=== PATIENT | female | born 1930 | race Caucasian/White ===

== ENCOUNTER 2017-02-10 19:05 | Inpatient (IN) | payer OTHER ==
--- NOTE | 2017-02-10 19:16 | EDPHY ---
H & P Time Seen by Provider: 02/10/17 19:09 HPI/ROS: CHIEF COMPLAINT: Left hip pain HISTORY OF PRESENT ILLNESS: Patient is a 46-year-old female who tripped on a step and landed on her left hip. She has pain in her left hip. She has been able to bear weight. This happened just prior to arrival. She is visiting here from [place]. She denies head neck or back injury. She denies upper extremity injury. REVIEW OF SYSTEMS: Constitutional: denies: chills, fever, recent illness, recent injury EENTM: denies: blurred vision, double vision, nose congestion Respiratory: denies: cough, shortness of breath Cardiac: denies: chest pain, irregular heart rate, lightheadedness, palpitations Gastrointestinal/Abdominal: denies: abdominal pain, diarrhea, nausea, vomiting, blood streaked stools Genitourinary: denies: dysuria, frequency, hematuria, pain Musculoskeletal: See HPI Skin: denies: lesions, rash, jaundice, bruising Neurological: denies: headache, numbness, paresthesia, tingling, dizziness, weakness Hematologic/Lymphatic: denies: blood clots, easy bleeding, easy bruising Immunologic/allergic: denies: HIV/AIDS, transplant EXAM: GENERAL: Well-appearing, well-nourished and in no acute distress. HEAD: Atraumatic, normocephalic. EYES: Pupils equal round and reactive to light, extraocular movements intact, sclera anicteric, conjunctiva are normal. ENT: TMs normal, nares patent, oropharynx clear without exudates. Moist mucous membranes. NECK: Normal range of motion, supple without lymphadenopathy or JVD. LUNGS: Breath sounds clear to auscultation bilaterally and equal. No wheezes rales or rhonchi. HEART: Regular rate and rhythm without murmurs, rubs or gallops. ABDOMEN: Soft, nontender, normoactive bowel sounds. No guarding, no rebound. No masses appreciated. BACK: No CVA tenderness, no spinal tenderness, step-offs or deformities EXTREMITIES: Left hip pain with axial loading or rotation. Not shortened. Normal pulses and sensation distally. No tenderness to knee or ankle. NEUROLOGICAL: Cranial nerves II through XII grossly intact. Normal speech, normal gait. 5/5 strength, normal movement in all extremities, normal sensation PSYCH: Normal mood, normal affect. SKIN: Warm, dry, normal turgor, no visible rashes or lesions. Source: Patient Exam Limitations: No limitations - Medical/Surgical History Hx Asthma: No Hx Chronic Respiratory Disease: No Hx Diabetes: No Hx Cardiac Disease: No Hx Renal Disease: No Hx Cirrhosis: No Hx Alcoholism: No Other PMH: Thyroid disease, hypertension, obstructive sleep apnea - Family History Significant Family History: No pertinent family hx - Social History Smoking Status: Never smoked Alcohol Use: Sober Drug Use: None Constitutional: Initial Vital Signs Temperature (C) 37.7 C 02/10/17 19:17 Heart Rate 72 02/10/17 19:17 Respiratory Rate 17 02/10/17 19:17 Blood Pressure 168/83 H 02/10/17 19:17 O2 Sat (%) 84 L 02/10/17 19:17 O2 Delivery Mode Nasal Cannula Allergies/Adverse Reactions: Sulfa (Sulfonamide Antibiotics) Allergy (Verified 02/10/17 19:17) Home Medications: Medication Instructions Recorded Aspirin EC [Aspirin EC 81 mg (*)] 81 mg PO DAILY 02/10/17 Atenolol [Tenormin 50 mg (*)] 25 mg PO HS 02/10/17 Benazepril HCl 40 mg PO DAILY 02/10/17 Escitalopram Oxalate [Lexapro] 10 mg PO DAILY 02/10/17 Estradiol [VAGIFEM] 10 mcg VG WE 02/10/17 Herbals/Supplements -Info Only 1 ea PO DAILY 02/10/17 Ibuprofen [Motrin (*)] 200 - 600 mg PO DAILY PRN 02/10/17 Levothyroxine [Synthroid 88 mcg 88 mcg PO DAILY 02/10/17 (*)] Multivitamins [Multivitamin (*)] 1 each PO DAILY 02/10/17 Omeprazole [Prilosec 20 mg] 20 mg PO DAILY 02/10/17 Simvastatin 20 mg PO HS 02/10/17 Medical Decision Making - Diagnostics Imaging: I viewed and interpreted images myself ED Course/Re-evaluation: Patient has a left femoral neck fracture. I will admit to Dr. Bruce Pace and consult Orthopedics. 8:10 p.m. I discussed the case with Dr. Sophy Son who will operate in the morning. The patient ate about 3 hours ago. Differential Diagnosis: Partial list of the Differential diagnosis considered include but were not limited to; hip fracture, contusion and although unlikely based on the history and physical exam, I also considered syncope, head injury, arrhythmia. - Data Points Laboratory Results: Laboratory Results 02/10/17 18:45 02/10/17 18:45 Medications Given: Discontinued Medications Acetaminophen (Tylenol) 650 mg PO Q4HRS DELORIS Stop: 08/10/17 13:59 Last Admin: 02/11/17 15:37 Dose: Not Given Cefazolin Sodium/Dextrose (Ancef 2 Gm (Premix)) 100 mls @ 200 mls/hr IV ONCE ONE Stop: 02/11/17 10:29 Last Admin: 02/11/17 14:56 Dose: Not Given Ropivacaine 80 mg/ Epinephrine HCl 0.2 mg/ Ketorolac Tromethamine 30 mg/ Morphine Sulfate 10 mg/ IV Miscellaneous Supplies 42.2 mls @ 0 mls/hr IU ONCALL ONE PRN Reason: As Directed Stop: 02/11/17 10:01 Last Admin: 02/11/17 14:57 Dose: Not Given Cefazolin Sodium/Dextrose (Ancef 1 Gm (Premix)) 50 mls @ 200 mls/hr IV Q8HRS DELORIS PRN Reason: Protocol Stop: 02/11/17 22:14 Last Admin: 02/11/17 21:01 Dose: 50 mls Oxycodone HCl (Oxycodone Ir) 5 - 10 mg PO Q3HRS PRN PRN Reason: Pain, Severe Able to Take PO Stop: 02/20/17 20:38 Last Admin: 02/10/17 21:36 Dose: 5 mg Departure - Departure Disposition: [facility] Inpatient Acute Clinical Impression: Femoral neck fracture Qualifiers: Encounter type: initial encounter Fracture type: closed Laterality: left Qualified Code(s): S72.002A - Fracture of unspecified part of neck of left femur , initial encounter for closed fracture Condition: Fair
[2017-02-10 19:41] LABS: % IMMATURE GRANULYOCYTES 0.6 % (0.0-1.1); ABSOLUTE IMMATURE GRANULOCYTES 0.09 10^3/uL (0.00-0.10); ADD DIFF? NO; ADD MORPH? NO; ADD SCAN? NO; ATYPICAL LYMPHOCYTE FLAG 10 (0-99); FRAGMENT RBC FLAG 0 (0-99); HEMATOCRIT 47.9 % (38.0-47.0); HEMOGLOBIN 15.4 g/dL (12.6-16.3); LEFT SHIFT FLG 10 (0-99); LIPEMIA HEMOLYSIS FLAG 80 (0-99); MEAN CELL HEMOGLOBIN 29.4 pg (27.9-34.1); MEAN CELL HEMOGLOBIN CONCENTR. 32.2 g/dL (32.4-36.7); MEAN CELL VOLUME 91.6 fL (81.5-99.8); MEAN PLATELET VOLUME 10.8 fL (8.7-11.7); PLATELET CLUMPS FLAG 0 (0-99); PLATELET COUNT 224 10^3/uL (150-400); RED BLOOD CELL COUNT 5.23 10^6/uL (4.18-5.33); RED CELL DISTRIBUTION WIDTH 13.6 % (11.5-15.2)
[2017-02-10 19:50] LABS: APTT 21.8 SEC (23.0-38.0); INR 1.02 (0.83-1.16); PROTIME(PATIENT) 13.3 SEC (12.0-15.0)
[2017-02-10 19:55] LABS: ANION GAP 12 mEq/L (8-16); CALCIUM 9.6 mg/dL (8.5-10.4); CARBON DIOXIDE 28 mEq/l (22-31); CHLORIDE 101 mEq/L (97-110); CREATININE 0.7 mg/dL (0.6-1.0); GLOMERULAR FILTRATION RATE > 60; GLUCOSE 128 mg/dL (70-100); POTASSIUM 4.1 mEq/L (3.5-5.2); SODIUM 141 mEq/L (134-144)
[2017-02-10] MEDS ORDERED: oxyCODONE IR 5 MG TAB PO PRN (20:39)
[2017-02-10] MEDS ORDERED: ONDANSETRON DISINTEGRATING 4 MG TAB PO PRN (20:39)
[2017-02-10] MEDS ORDERED: TEMAZEPAM 15 MG CAP PO PRN (20:39)
[2017-02-10] MEDS ORDERED: ONDANSETRON 4 MG/2 ML VIAL IVP PRN (20:39)
[2017-02-10] MEDS ORDERED: ACETAMINOPHEN 325 MG TAB PO PRN (20:39)
--- NOTE | 2017-02-10 21:19 | GHP ---
[f rep st] HISTORY AND PHYSICAL DATE OF ADMISSION: 02/10/2017 CHIEF COMPLAINT: Fall and left hip pain. HISTORY OF PRESENT ILLNESS: This is an 86-year-old female who is visiting from [place], [place], who presents after having had a fall. She was going down a few steps, missed one, and landed on her left hip. She had immediate pain there. She has sensation in her left foot, and she is able to move it. She did not hit her head or otherwise lose consciousness. After that, she was really unable to bear weight on it. She had to be helped around by her family. However, she did go to a graduation alliance party after the fall. She then presented to the ED for further evaluation. At her baseline, she is able to walk around the block without getting short of breath. She is able to go up a few flights of stairs with mild shortness of breath. She does not get any chest pain. She has no history of cardiovascular problems. PAST MEDICAL/SURGICAL HISTORY: 1. Hypothyroid. 2. Hypertension. 3. ELLIOTT. 4. Hyperlipidemia. MEDICATIONS: Please see medication reconciliation. ALLERGIES: Sulfa. FAMILY HISTORY: Parents are . SOCIAL HISTORY: She lives with her . She does not drink or smoke. She is visiting for her great-granddaughter's high school graduation. REVIEW OF SYSTEMS: A 10-point review of systems was conducted and is negative except per the HPI. PHYSICAL EXAMINATION: VITAL SIGNS: Blood pressure 173/70, heart rate 76, respiration rate 17, initially satting at 84% on room air, temperature 37.7. GENERAL: The patient is a pleasant female who appears in mild distress. HEENT : Shows her to be normocephalic, atraumatic. CARDIOVASCULAR: Exam shows a regular rate and rhythm. No murmurs, rubs, or gallops. PULMONARY: Exam shows lungs clear to auscultation bilaterally. ABDOMEN: Exam is soft, nontender, and nondistended. SKIN: Exam showed no rash. : Exam showed no Olivares. NEUROLOGIC: Exam shows her to be alert and oriented x3. She is moving all extremities. PSYCHIATRIC: Exam shows normal mood and affect. EXTREMITIES: Exam shows her left lower extremity mildly externally rotated. She has a palpable dorsalis pedis pulse. Her foot is warm. Motor function is intact, as well as sensation. LABORATORY DATA: White count is 14.8. INR is 1.0. Basic metabolic panel is normal. DATA: 1. I discussed her with Dr. Palmer. We will plan to admit to med/surg. 2. I personally viewed and interpreted her hip x-ray which shows a left femoral neck fracture. 3. I personally viewed and interpreted her chest x-ray. It shows borderline cardiomegaly. Radiology read is possible pulmonary venous congestion. IMPRESSION AND PLAN: This is an 86-year-old female with a fall and left hip fracture. 1. Left hip fracture: Dr. Son plans to take her to the operating room tomorrow morning. 2. Perioperative evaluation: In terms of perioperative risk, she is able to attain 4 METS. Thus, by RCRI, she is reasonable risk for surgery. I will go ahead and get a preop EKG to look for Q-waves or other signs of previous cardiac damage. She was mildly hypoxic on presentation, but not dyspneic. Chest x-ray shows borderline cardiomegaly, possible mild venous congestion without clinical heart failure. Her hypoxia may be chronic or related to narcotics. If she remains hypoxic could consider an echo prior to going to the OR. 3. Hypertension: Continue her atenolol. 4. Hyperlipidemia: Simvastatin. 5. Code status. She would like to be a full code. 6. Venous thromboembolism risk: She will be high risk. She will need prophylaxis postop. /[id number]/MODL MTDD
[2017-02-11 07:16] LABS: % IMMATURE GRANULYOCYTES 0.5 % (0.0-1.1); ABSOLUTE IMMATURE GRANULOCYTES 0.04 10^3/uL (0.00-0.10); ADD DIFF? NO; ADD MORPH? NO; ADD SCAN? NO; ATYPICAL LYMPHOCYTE FLAG 0 (0-99); FRAGMENT RBC FLAG 0 (0-99); HEMATOCRIT 39.2 % (38.0-47.0); HEMOGLOBIN 12.8 g/dL (12.6-16.3); LEFT SHIFT FLG 0 (0-99); LIPEMIA HEMOLYSIS FLAG 80 (0-99); MEAN CELL HEMOGLOBIN 29.7 pg (27.9-34.1); MEAN CELL HEMOGLOBIN CONCENTR. 32.7 g/dL (32.4-36.7); MEAN PLATELET VOLUME 10.7 fL (8.7-11.7); PLATELET CLUMPS FLAG 0 (0-99); PLATELET COUNT 167 10^3/uL (150-400); RED BLOOD CELL COUNT 4.31 10^6/uL (4.18-5.33); RED CELL DISTRIBUTION WIDTH 13.6 % (11.5-15.2)
[2017-02-11 07:45] LABS: ANION GAP 6 mEq/L (8-16); CARBON DIOXIDE 28 mEq/l (22-31); CHLORIDE 107 mEq/L (97-110); CREATININE 0.7 mg/dL (0.6-1.0); GLOMERULAR FILTRATION RATE > 60; GLUCOSE 100 mg/dL (70-100); POTASSIUM 4.2 mEq/L (3.5-5.2); SODIUM 141 mEq/L (134-144)
[2017-02-11] MEDS: LEVOTHYROXINE 88 MCG TAB PO SCH (08:12)
[2017-02-11] MEDS: PANTOPRAZOLE SODIUM 40 MG TAB PO SCH (09:12)
[2017-02-11] MEDS: ESCITALOPRAM OXALATE 10 MG TAB PO SCH (09:12)
[2017-02-11] MEDS ORDERED: CEFAZOLIN 2 GM/DEXTROSE/100 ML BAG IV ONE (09:49)
[2017-02-11] MEDS ORDERED: ROPI/epINEPH/KETOROLAC/morphINE IU ONE (10:00)
[2017-02-11] MEDS ORDERED: ceFAZolin 2 GM/DEXTROSE 100 ML IV ONE (10:00)
[2017-02-11] MEDS ORDERED: BUPIVACAINE/EPI 0.5% 30 ML SDV ONE (10:28)
[2017-02-11] MEDS ORDERED: BACITRACIN 50,000 UNITS/10 ML SYR IRR ONE (10:29)
[2017-02-11] MEDS ORDERED: POLYMYXIN B SULFATE 500,000 UNIT/10 ML SYR IRR ONE (10:29)
[2017-02-11] MEDS ORDERED: PROPOFOL 200 MG/20 ML VIAL ONE ×2 (10:35→11:17)
[2017-02-11] MEDS ORDERED: ROCURONIUM 50 MG/5 ML VIAL ONE (10:36)
[2017-02-11] MEDS ORDERED: DEXAMETHASONE 4 MG/ML VIAL ONE (10:38)
[2017-02-11] MEDS ORDERED: epHEDrine SULFATE 10 MG/ML SYR ONE (11:48)
[2017-02-11] MEDS ORDERED: NEOSTIGMINE METHYLSULFATE 5 MG/5 ML SYR ONE (12:14)
[2017-02-11] MEDS ORDERED: GLYCOPYRROLATE 0.2 MG/1 ML VIAL ONE (12:14)
[2017-02-11] MEDS ORDERED: ONDANSETRON 4 MG/2 ML VIAL ONE (12:14)
[2017-02-11] MEDS ORDERED: HYDROCODONE/APAP 5/325 TAB PO PRN (12:53)
--- NOTE | 2017-02-11 12:53 | POSTOPPROG ---
Post Op Note Date of Operation: 02/11/17 Surgeon: Sophy Son Anesthesiologist: subhash Anesthesia: GET(General Endotracheal) Pre-op Diagnosis: l hip fx Procedure: l hip ana maria-arthroplasty with fluoro Inf/Abcess present in the surg proc area at time of surgery?: No Depth: Deep Incisional (Fascial) EBL: 100-500
[2017-02-11] MEDS ORDERED: TAPENTADOL HCL 50 MG TAB PO PRN (12:55)
[2017-02-11] MEDS ORDERED: D5W 1/2 NS W/ 20 KCl/L 1,000 ML IV SCH (13:00)
--- NOTE | 2017-02-11 13:05 | HOSPPROG ---
Hospitalist Progress Note Assessment/Plan: Dayna Zavaleta is an 86 y/o female who missed a step and landed on her left hip. She sustained a left hip fracture. Today is my first encounter with the patient/ chart reviewed. *Left hip fx s/p repair/left hemiarthroplasty POD # 0 *hypoxemia has ELLIOTT on 4 liters will cont monitoring here visiting from [place] IS hourly *HTN bp 157/63 *constipation bowel protocol *HLD statin *dvt prophylaxis: Xarelto Plan: repeat labs in a.m., diet as tolerated Subjective: Dayna has no complaints. Objective: Vital Signs Temp Pulse Resp BP Pulse Ox 36.8 C 60 14 151/66 H 96 02/11/17 08:26 02/11/17 08:26 02/11/17 08:26 02/11/17 08:26 02/11/17 08:26 Laboratory Results 02/11/17 07:11 02/11/17 07:11 02/10/17 02/11/17 02/12/17 05:59 05:59 05:59 Output Total 500 Balance -500 PT 13.3 SEC (12.0-15.0) 02/10/17 18:45 INR 1.02 (0.83-1.16) 02/10/17 18:45 - Physical Exam Constitutional: no apparent distress, appears nourished, not in pain Eyes: PERRL Ears, Nose, Mouth, Throat: hearing normal Cardiovascular: regular rate and rhythym, no murmur, rub, or gallop Respiratory: no respiratory distress Gastrointestinal: normoactive bowel sounds Skin: warm, normal color Musculoskeletal: other (left hip dressing dry, intact) Neurologic: AAOx3 Psychiatric: interacting appropriately ICD10 Worksheet Patient Problems: Problems Problem Status Onset Femoral neck fracture Acute
[2017-02-11] MEDS ORDERED: ACETAMINOPHEN 325 MG TAB PO SCH (14:00)
--- NOTE | 2017-02-11 14:15 | GCON ---
[f rep st] CONSULTATION ORTHOPEDIC CONSULTATION. DATE OF CONSULTATION: 02/11/2017 CHIEF COMPLAINT: Left hip pain. HISTORY OF PRESENT ILLNESS: Ms. Zavaleta is an 86-year-old female who fell while at a graduation [employer] yesterday. Was seen in the emergency room, diagnosed with a left hip femoral neck fracture. S he was admitted in preparation for surgery. PHYSICAL EXAMINATION: The patient remains grossly neurologically intact to the dorsal, lateral, and plantar portions of the foot with anterior tib, EHL and FHL remaining intact however she has pain w hen doing so. She has pain to a log roll test. X-ray exam reveals a femoral neck fracture at the b ase of the femoral head. She wishes to have surgery in order to resolve the problem. ASSESSMENT AND PLAN: The patient is status post left femoral neck fracture. She will be brought to the operating room as soon as time is available. /[id number]/MODL
[2017-02-11] MEDS ORDERED: oxyCODONE IR 5 MG TAB PO PRN (14:36)
[2017-02-11] MEDS ORDERED: MAGNESIUM HYDROXIDE 30 ML UDCUP PO PRN (14:37)
[2017-02-11] MEDS ORDERED: LACTULOSE 20 GM/30 ML UDCUP PO PRN (14:37)
[2017-02-11] MEDS ORDERED: BISACODYL 10 MG SUPP PR PRN (14:37)
--- NOTE | 2017-02-11 14:45 | GOP ---
[f rep st] OPERATIVE REPORT DATE OF OPERATION: 02/11/2017 SURGEON: Sophy Son MD ANESTHESIA: By endotracheal intubation. PREOPERATIVE DIAGNOSIS: Left hip fracture. POSTOPERATIVE DIAGNOSIS: Left hip fracture. PROCEDURE PERFORMED: Left hip hemiarthroplasty, done with fluoroscopy. FINDINGS: INDICATIONS: This is an 86-year-old female who fell yesterday while at a graduation [employer] party and was u nable to stand afterward. Was seen in the emergency room and diagnosed with a femoral neck fracture . She was admitted in preparation for surgery 1st thing today. DESCRIPTION OF PROCEDURE: Patient brought to the operating room after the left side had been identi fied as correct side by the patient, nurse, and physician. Once in the operating room, she was plac ed under general anesthesia using endotracheal intubation. Once asleep, she was placed on a tractio n table with a well-padded perineal post, and both legs placed in appropriate leg regan. Fluorosco py was used to ensure proper positioning of the pelvis. Once ensured, the arch table was locked int o place, and the left hip and flank were sterilely prepped and draped in the usual fashion using GSI solution. Once prepped and draped, a linear incision was made 2 cm lateral and inferior to the ASI S and heading in a 15-degree posterior direction with sharp dissection carried down through the skin and subcutaneous layers and bleeding controlled using electrocautery. Blunt dissection was carried down onto the fascia overlying the TFL, which was then split in line with its fibers, with the TFL belly retracted laterally. Further inspection revealed the circumflex vessels at the base of the fa scial sheath; these were cauterized. Once cauterized, deeper dissection was carried down onto the h ip capsule with blunt Cobra retractors placed on the superior and inferior portions of the femoral n gaetano. The anterior capsule was removed in its entirety, exposing the femoral neck. Oscillating saw was used to cut across the femoral neck closer to the intertrochanteric line. The leg was externall y rotated to 40 degrees. A corkscrew was placed within the femoral neck and head. The head was rem stalin, measured to be 43 mm in diameter. A 43 trial was placed within the acetabulum and noted to fi t securely. Attention was turned to the femoral neck, which was externally rotated to 90 degrees. Soft tissue dissection was done around the anterior and superior portions of the femoral neck onto t he greater trochanter. Once the capsule had been adequately released, the leg was able to be droppe d into extension and adduction, gaining access to the proximal femur. Curette was used to remove derian ne from the medullary canal, then a rongeur was used to remove the superior portion of the femoral n gaetano in order to allow access into the medullary canal. Sequential broaches were used up to size 4, which was noted to fit securely. A trial reduction was performed and was noted to have good length with a high offset neck and a +0 head. Therefore, the hip was re-dislocated, placed in extension an d adduction with trials removed, and a size 4, 127-degree Accolade II stem from [place] put into jose r ce, noted to fit securely. A 26 mm +0 head was then put into place, and a 26 x 43 bipolar component for the head was put into place. Once completed and reduced, joint cocktail was injected around th e acetabulum and proximal femur. 0 Vicryl suture was used to close the fascia overlying the TFL wit h 30 cc of Marcaine infused in subcutaneous tissue around the wound. 0 Vicryl and 2-0 Vicryl suture s were used to close the subcutaneous layers, and a 3-0 V-Loc suture in a running subcuticular stitc h was used to close the skin. The wound was dressed with Steri-Strips, Xeroform, 4 x 4, and Tegader m. She was completely undraped in the operating room, had her legs taken out of leg regan, perinea l post was removed. Her leg lengths were noted to be equal. She was then awakened, extubated, groves sferred onto a bed, and sent to the recovery room in good condition. /[id number]/MODL
[2017-02-11] MEDS: ACETAMINOPHEN 500 MG TAB PO SCH ×2 (15:30→21:05)
[2017-02-11] MEDS: KETOROLAC 15 MG/1 ML SDV IVP SCH (18:01)
[2017-02-11] MEDS: traMADol 50 MG TAB PO SCH (18:11)
[2017-02-11] MEDS: ATENOLOL 50 MG TAB PO SCH (20:50)
[2017-02-11] MEDS: SENNOSIDES/DOCUSATE SODIUM TAB PO SCH (20:51)
[2017-02-11] MEDS: ATORVASTATIN CALCIUM 10 MG TAB PO SCH (20:51)
[2017-02-12 07:52] LABS: % IMMATURE GRANULYOCYTES 0.4 % (0.0-1.1); ABSOLUTE IMMATURE GRANULOCYTES 0.05 10^3/uL (0.00-0.10); ADD DIFF? NO; ADD MORPH? NO; ADD SCAN? NO; ATYPICAL LYMPHOCYTE FLAG 0 (0-99); FRAGMENT RBC FLAG 10 (0-99); HEMATOCRIT 34.8 % (38.0-47.0); HEMOGLOBIN 11.5 g/dL (12.6-16.3); LEFT SHIFT FLG 40 (0-99); LIPEMIA HEMOLYSIS FLAG 80 (0-99); MEAN CELL HEMOGLOBIN 30.3 pg (27.9-34.1); MEAN CELL VOLUME 91.6 fL (81.5-99.8); MEAN PLATELET VOLUME 11.3 fL (8.7-11.7); PLATELET CLUMPS FLAG 0 (0-99); PLATELET COUNT 158 10^3/uL (150-400); RED CELL DISTRIBUTION WIDTH 13.8 % (11.5-15.2)
[2017-02-12 08:14] LABS: ANION GAP 6 mEq/L (8-16); CALCIUM 8.9 mg/dL (8.5-10.4); CARBON DIOXIDE 26 mEq/l (22-31); CHLORIDE 102 mEq/L (97-110); CREATININE 0.9 mg/dL (0.6-1.0); GLOMERULAR FILTRATION RATE 59; GLUCOSE 140 mg/dL (70-100); POTASSIUM 5.4 mEq/L (3.5-5.2); SODIUM 134 mEq/L (134-144)
[2017-02-12] MEDS: ACETAMINOPHEN 500 MG TAB PO SCH ×3 (08:34→21:09)
[2017-02-12] MEDS: ESCITALOPRAM OXALATE 10 MG TAB PO SCH (08:34)
[2017-02-12] MEDS: RIVAROXABAN 10 MG TAB PO SCH (08:34)
[2017-02-12] MEDS: PANTOPRAZOLE SODIUM 40 MG TAB PO SCH (08:34)
[2017-02-12] MEDS: SENNOSIDES/DOCUSATE SODIUM TAB PO SCH ×2 (08:34→21:09)
[2017-02-12] MEDS: LEVOTHYROXINE 88 MCG TAB PO SCH (08:34)
[2017-02-12] MEDS: POLYETHYLENE GLYCOL 3350 17 GM PKT PO SCH (08:38)
--- NOTE | 2017-02-12 09:14 | HOSPPROG ---
Hospitalist Progress Note Assessment/Plan: Dayna Zavaleta is an 86 y/o female who missed a step and landed on her left hip. She sustained a left hip fracture. *Left hip fx s/p repair/left hemiarthroplasty POD # 1 doing well/ minimal pain *hypoxemia has ELLIOTT had been on 4 liters/ now on 2 will cont monitoring here visiting from [place] IS hourly *hyperkalemia mild / recheck in a.m. *anemia expected blood loss/ minimal *HTN bp 149/88 *constipation bowel protocol *HLD statin *dvt prophylaxis: Xarelto Plan: continue monitoring overnight/ main issue is use of O2/ patient working on using IS Subjective: Dayna has minimal pain/ was able to get oob today without much difficulty. Objective: Vital Signs Temp Pulse Resp BP Pulse Ox 36.7 C 68 16 149/88 H 96 02/11/17 23:09 02/12/17 08:00 02/12/17 08:00 02/12/17 08:00 02/12/17 08:00 Laboratory Results 02/12/17 04:20 02/12/17 04:20 02/11/17 02/12/17 02/13/17 05:59 05:59 05:59 Intake Total 1200 Output Total 500 1000 Balance -500 200 PT 13.3 SEC (12.0-15.0) 02/10/17 18:45 INR 1.02 (0.83-1.16) 02/10/17 18:45 - Physical Exam Constitutional: no apparent distress, appears nourished, not in pain Eyes: PERRL Ears, Nose, Mouth, Throat: hearing normal Cardiovascular: regular rate and rhythym Respiratory: no respiratory distress, reduced air movement Gastrointestinal: normoactive bowel sounds Skin: warm, normal color Neurologic: AAOx3 Psychiatric: interacting appropriately, not anxious ICD10 Worksheet Patient Problems: Problems Problem Status Onset Femoral neck fracture Acute
--- NOTE | 2017-02-12 10:30 | SOAPPROG ---
SOAP Progress Note Assessment/Plan: Assessment: Plan: Subjective: states she's comfortable OOB to chair dressing C&D foot and thigh NVI cont PT Objective: Vital Signs Temp Pulse Resp BP Pulse Ox 36.7 C 68 16 149/88 H 96 02/11/17 23:09 02/12/17 08:00 02/12/17 08:00 02/12/17 08:00 02/12/17 08:00 Laboratory Results 02/12/17 04:20 02/12/17 04:20 02/11/17 02/12/17 02/13/17 05:59 05:59 05:59 Intake Total 1200 Output Total 500 1000 Balance -500 200 PT 13.3 SEC (12.0-15.0) 02/10/17 18:45 INR 1.02 (0.83-1.16) 02/10/17 18:45 ICD10 Worksheet Patient Problems: Problems Problem Status Onset Femoral neck fracture Acute
[2017-02-12] MEDS: KETOROLAC 15 MG/1 ML SDV IVP SCH ×4 (14:34→23:05)
[2017-02-12] MEDS: traMADol 50 MG TAB PO SCH ×4 (14:35→23:05)
[2017-02-12] MEDS: ATENOLOL 50 MG TAB PO SCH (21:08)
[2017-02-12] MEDS: ATORVASTATIN CALCIUM 10 MG TAB PO SCH (21:09)
[2017-02-13 05:13] LABS: HEMATOCRIT 33.8 % (38.0-47.0)
[2017-02-13 05:22] LABS: ANION GAP 4 mEq/L (8-16); CALCIUM 8.9 mg/dL (8.5-10.4); CARBON DIOXIDE 27 mEq/l (22-31); CHLORIDE 105 mEq/L (97-110); CREATININE 0.7 mg/dL (0.6-1.0); GLOMERULAR FILTRATION RATE > 60; GLUCOSE 102 mg/dL (70-100); POTASSIUM 4.7 mEq/L (3.5-5.2); SODIUM 136 mEq/L (134-144)
[2017-02-13] MEDS: KETOROLAC 15 MG/1 ML SDV IVP SCH ×2 (06:30→11:47)
[2017-02-13] MEDS: traMADol 50 MG TAB PO SCH ×2 (06:31→11:47)
[2017-02-13 07:32] VITALS: BP 146/64; RESP 14; TEMP 97.7; O2SAT 97
--- NOTE | 2017-02-13 07:45 | CPEKG ---
Heart Rate: 74 RR Interval: 811 P-R Interval: 200 QRSD Interval: 154 QT Interval: 424 QTC Interval: 471 P [place]: 32 QRS [place]: 116 T Wave [place]: -38 EKG Severity - ABNORMAL ECG - EKG Impression: SINUS RHYTHM EKG Impression: ATRIAL PREMATURE COMPLEX EKG Impression: SINUS PAUSE/ARREST WITH ATRIAL ESCAPE EKG Impression: RIGHT BUNDLE BRANCH BLOCK Preliminary Awaiting MD Review
[2017-02-13] MEDS: ACETAMINOPHEN 500 MG TAB PO SCH ×2 (09:22→15:38)
[2017-02-13] MEDS: LEVOTHYROXINE 88 MCG TAB PO SCH (09:23)
[2017-02-13] MEDS: SENNOSIDES/DOCUSATE SODIUM TAB PO SCH (09:23)
[2017-02-13] MEDS: ESCITALOPRAM OXALATE 10 MG TAB PO SCH (09:23)
[2017-02-13] MEDS: PANTOPRAZOLE SODIUM 40 MG TAB PO SCH (09:23)
[2017-02-13] MEDS: RIVAROXABAN 10 MG TAB PO SCH (09:23)
[2017-02-13] MEDS: POLYETHYLENE GLYCOL 3350 17 GM PKT PO SCH (09:26)
--- NOTE | 2017-02-13 11:48 | PDIAF ---
- Diagnosis Diagnosis: hip fx Code Status: Full Code - Medication Management Discharge Medications: Medications to Continue on Transfer Atenolol [Tenormin 50 mg (*)] 25 mg PO HS 02/10/17 [Last Taken 02/09/17] Benazepril HCl 40 mg PO DAILY 02/10/17 [Last Taken 02/10/17] Escitalopram Oxalate [Lexapro 10 MG] 10 mg PO DAILY 02/10/17 [Last Taken ] Estradiol [VAGIFEM] 10 mcg VG WE 02/10/17 [Last Taken 02/08/17] Herbals/Supplements -Info Only 1 ea PO DAILY 02/10/17 [Last Taken Unknown] Ibuprofen [Motrin (*)] 200 - 600 mg PO DAILY PRN 02/10/17 [Last Taken 02/10/17 05:00 3 TABS] Levothyroxine [Synthroid 88 mcg (*)] 88 mcg PO DAILY 02/10/17 [Last Taken ] Multivitamins [Multivitamin (*)] 1 each PO DAILY 02/10/17 [Last Taken Unknown] Omeprazole [Prilosec 20 mg] 20 mg PO DAILY 02/10/17 [Last Taken 02/10/17] Simvastatin 20 mg PO HS 02/10/17 [Last Taken 02/09/17] Rivaroxaban [Xarelto 10mg (*)] 10 mg PO DAILY tab 02/13/17 [Last Taken Unknown] Sennosides/Docusate Sodium [Senokot-S] 1 - 2 tab PO BID tab 02/13/17 [Last Taken Unknown] traMADol [Ultram 50 mg (*)] 50 mg PO Q6HRS tab 02/13/17 [Last Taken Unknown] Discharge Medications: Refer to the Discharge Home Medication list for PRN reason. - Orders Services needed: Registered Nurse, Physical Therapy, Occupational Therapy Diet Recommendation: no restrictions on diet Diet Texture: Regular Texture Diet - Follow Up Care Current Providers and Referrals: Patient,NotPresent [Unknown] - As per Instructions
--- NOTE | 2017-02-13 11:52 | SOAPPROG ---
SOAP Progress Note Assessment/Plan: Assessment: POD #2 s/p L ana maria Plan: WBAT, PT today ortho will follow 02/13/17 11:51 Subjective: Doing well, no issues Objective: Vital Signs Temp Pulse Resp BP Pulse Ox 36.5 C 53 L 14 146/64 H 97 02/13/17 07:30 02/13/17 07:30 02/13/17 07:30 02/13/17 07:30 02/13/17 07:30 Laboratory Results 02/13/17 04:22 02/13/17 04:22 02/12/17 02/13/17 02/14/17 05:59 05:59 05:59 Intake Total 1200 750 Output Total 1000 Balance 200 750 PT 13.3 SEC (12.0-15.0) 02/10/17 18:45 INR 1.02 (0.83-1.16) 02/10/17 18:45 Dressing CDI, calf NT, pulse 2+, NVi - Pending Discharge Pending Discharge Within 24 Hours: No Pending Discharge Within 48 Hours: No ICD10 Worksheet Patient Problems: Problems Problem Status Onset Femoral neck fracture Acute
[2017-02-13 13:10] VITALS: PULSE 54
--- NOTE | 2017-02-13 14:01 | GDS ---
[f rep st] DISCHARGE SUMMARY DISCHARGE DIAGNOSES: 1. Left hip fracture. 2. Hypoxemia. 3. Hyperkalemia. 4. Anemia. 5. Hypertension. 6. Constipation. CONSULTATIONS: Dr. Son of Orthopedics. PHYSICAL EXAM: GENERAL: The patient is alert. VITAL SIGNS: Afebrile at 36.5, pulse is 53, respir atory rate is 14, blood pressure is 146/64, she is saturating 97% on 3 L. I have seen and evaluated the patient on the day of discharge. HOSPITAL COURSE: The patient is an 86-year-old female, who suffered a mechanical fall and presented to the emergency room with complaints of hip pain. She was evaluated and diagnosed with: 1. Left hip fracture. During this hospitalization, she received a consultation from Dr. oSn of [facility]. Surgical intervention was performed and the patient is stable in the postoperative setti ng. She will require rehabilitation for strengthening and conditioning. 2. Hypoxemia. The patient has a history of obstructive sleep apnea. She is on 2-3 L of oxygen. I t is likely secondary to atelectasis and immobility. There are no signs of infection at this time. We will continue her supplemental oxygen as needed. 3. Hyperkalemia. This has resolved. 4. Anemia. This is expected with acute blood loss in a surgical setting. 5. Hypertension. This is stable and her home medications have been re-initiated. DISPOSITION: The patient will be discharged to [facility] for further strengthening and rehabilitat ion. PENDING STUDIES: There are none. DISCHARGE MEDICATIONS: Please refer to EMR form. I have not adjusted the patient's previously pres cribed home medications to the best of my knowledge. DISCHARGE INSTRUCTIONS: She will continue the DVT prophylaxis and rehabilitation. BILLING: I spent greater than 35 minutes in the care, coordination, and management of this patient' s disposition. /[id number]/MODL
[2017-02-15] MEDS ORDERED: ESTRADIOL 10 MCG VG SCH (21:42)
== END 2017-02-13 16:14 | DRG 470 ==
LOC: EDBD 19:05 → OBSVTOIN 20:39 → F3E 20:49 → F3N 02-11 10:11
PROVIDERS: ADMIT Student in an Organized Health Care Education/Training Program; ATTEND Family Medicine
PROC: 0SRS0JA Replacement of Left Hip Joint, Femoral Surface with Synthetic Substitute, Uncemented, Open Approach (ICD-10-PCS; principal; 2017-02-11 10:51)
DX: S72.002A Fracture of unspecified part of neck of left femur, initial encounter for closed fracture (principal); E87.5 Hyperkalemia; I10 Essential (primary) hypertension; K59.00 Constipation, unspecified; D64.9 Anemia, unspecified; E03.9 Hypothyroidism, unspecified; E78.5 Hyperlipidemia, unspecified; R09.02 Hypoxemia; G47.33 Obstructive sleep apnea (adult) (pediatric); W10.8XXA Fall (on) (from) other stairs and steps, initial encounter; Z99.81 Dependence on supplemental oxygen
CPT/HCPCS: 97110-GP; 97116-GP; 97161-GP; 97166-GO; 97535-GO; G8978-GP-CK; G8979-GP-CI; G8987-GO-CL; G8988-GO-CI; J0171; J0690; J1100; J1885; J2405; J2704; J2710; J2795